=== PATIENT | female | born 1930 | race Caucasian/White ===

== ENCOUNTER 2017-01-27 20:11 | Inpatient (IN) | payer MEDICARE ==
[~2017-01-27] VITALS: Ht 154.9 cm; Wt 57.4 kg
--- NOTE | 2017-01-27 20:47 | PHYS DOC ---
Adult General Chief Complaint Chief Complaint: WEAKNESS/GENERALIZED HPI HPI Patient is a 86 year old female who presents with the acute onset of generalized weakness. Daughter states they've been out all day and after eating at [employer] came home and she was extremely weak therefore daughter brought her to the ER for further examination. Daughter states she has no history of A. fib however the patient is in A. fib with RVR on the monitor in the emergency room. Patient has no cardiac history. Pertinent exam findings Heart tachycardia irregular irregular ED course: CBC, CMP, trop, EKG, CXR, 20 mg of Cardizem IV push 2134: Discussed results the patient the plan to admit for the new onset of A. fib and discussed the need to place the patient on blood thinners 2141: Discussed CC/HPI/PMH with Dr. Garcia who agrees to admit the patient and want to start the patient with heparin drip 2152: Cardizem drip started Pertinent findings: 2041: EKG Afib 145 RVR no STEMI 2112: 20 mg of Cardizem given 2141: Elevated troponin of 0.237 ED medical decision making: After reviewing the chart, CC/HPI/PMH, PE, Labs, CRX I do not bleed the patient is having acute IL despite the elevated troponin I believe the patient's troponin is elevated secondary to the patient's new onset of A. fib with RVR. We 'll but the patient to the CVC for new onset A. fib with RVR, Cardizem and heparin drip. Review of Systems Review of Systems Constitutional: gen weakness Eyes: Denies change in visual acuity, redness, or eye pain [] HENT: Denies nasal congestion or sore throat [] Respiratory: Denies cough or shortness of breath [] Cardiovascular: No additional information not addressed in HPI [] GI: Denies abdominal pain, nausea, vomiting, bloody stools or diarrhea [] : Denies dysuria or hematuria [] Musculoskeletal: Denies back pain or joint pain [] Integument: Denies rash or skin lesions [] Current Medications Current Medications Current Medications Medications (Trade) Dose Ordered Sig/Maritza Start Time Stop Time Status Last Admin Dose Admin Aspirin (Children'S Aspirin) 324 mg 1X ONCE 01/27/17 22:00 01/27/17 22:01 Diltiazem HCl (Cardizem) 20 mg 1X ONCE 01/27/17 21:00 01/27/17 21:01 DC 01/27/17 21:08 20 MG Diltiazem HCl 125 mg/Dextrose 125 ml @ 0 mls/hr CONT PRN 01/27/17 21:15 01/28/17 21:14 01/27/17 21:51 5 MLS/HR Heparin Sodium (Porcine) (Heparin Sodium) 1,600 unit PRN Q6HRS PRN 01/27/17 22:00 UNV Heparin Sodium/ Dextrose 500 ml @ 0 mls/hr CONT PRN 01/27/17 22:00 UNV Morphine Sulfate 4 mg PRN Q2HR PRN 01/27/17 21:45 01/28/17 21:44 UNV Nitroglycerin (Nitrostat) 0.4 mg PRN Q5MIN PRN 01/27/17 21:45 01/28/17 21:44 UNV Ondansetron HCl (Zofran) 4 mg PRN Q8HRS PRN 01/27/17 21:45 01/28/17 21:44 UNV Allergies Allergies Allergies Coded Allergies Type Severity Reaction Last Updated Verified No Known Drug Allergies 01/27/17 No Physical Exam Physical Exam Constitutional: alter HENT: Normocephalic, atraumatic, bilateral external ears normal, oropharynx moist, no oral exudates, nose normal. [] Eyes: PERRLA, EOMI, conjunctiva normal, no discharge. [] Neck: Normal range of motion, no tenderness, supple, no stridor. [] Cardiovascular: Tachycardia irregular irregular no murmurs Lungs & Thorax: Bilateral breath sounds clear to auscultation [] Abdomen: Bowel sounds normal, soft, no tenderness, no masses, no pulsatile masses. [] Skin: Warm, dry, no erythema, no rash. [] Back: No tenderness, no CVA tenderness. [] Extremities: No tenderness, no cyanosis, no clubbing, ROM intact, no edema. [] Neurologic: Alert and oriented X 3, normal motor function, normal sensory function, no focal deficits noted. [] Psychologic: Affect normal, judgement normal, mood normal. [] Current Patient Data Vital Signs Vital Signs Date Time Temp Pulse Resp B/P (MAP) Pulse Ox O2 Delivery O2 Flow Rate FiO2 01/27/17 21:08 160 119/56 Lab Values Laboratory Tests Test 01/27/17 21:00 White Blood Count 8.1 x10^3/uL (4.0-11.0) Red Blood Count 4.26 x10^6/uL (3.50-5.40) Hemoglobin 14.1 g/dL (12.0-15.5) Hematocrit 41.0 % (36.0-47.0) Mean Corpuscular Volume 96 fL (79-100) Mean Corpuscular Hemoglobin 33 pg (25-35) Mean Corpuscular Hemoglobin Concent 34 g/dL (31-37) Red Cell Distribution Width 13.7 % (11.5-14.5) Platelet Count 216 x10^3/uL (140-400) Neutrophils (%) (Auto) 73 % (31-73) Lymphocytes (%) (Auto) 18 % (24-48) L Monocytes (%) (Auto) 8 % (0-9) Eosinophils (%) (Auto) 1 % (0-3) Basophils (%) (Auto) 1 % (0-3) Neutrophils # (Auto) 5.9 x10^3uL (1.8-7.7) Lymphocytes # (Auto) 1.5 x10^3/uL (1.0-4.8) Monocytes # (Auto) 0.7 x10^3/uL (0.0-1.1) Eosinophils # (Auto) 0.0 x10^3/uL (0.0-0.7) Basophils # (Auto) 0.0 x10^3/uL (0.0-0.2) Sodium Level 140 mmol/L (136-145) Potassium Level 3.7 mmol/L (3.5-5.1) Chloride Level 101 mmol/L (98-107) Carbon Dioxide Level 29 mmol/L (21-32) Anion Gap 10 (6-14) Blood Urea Nitrogen 27 mg/dL (7-20) H Creatinine 1.6 mg/dL (0.6-1.0) H Estimated GFR (Cockcroft-Gault) 30.6 BUN/Creatinine Ratio 17 (6-20) Glucose Level 147 mg/dL (70-99) H Calcium Level 9.3 mg/dL (8.5-10.1) Total Bilirubin 0.6 mg/dL (0.2-1.0) Aspartate Amino Transferase (AST) 26 U/L (15-37) Alanine Aminotransferase (ALT) 21 U/L (14-59) Alkaline Phosphatase 71 U/L (46-116) Troponin I Quantitative 0.237 ng/mL (0.000-0.055) Total Protein 7.6 g/dL (6.4-8.2) Albumin 3.6 g/dL (3.4-5.0) Albumin/Globulin Ratio 0.9 (1.0-1.7) L Laboratory Tests 01/27/17 21:00 Laboratory Tests 01/27/17 21:00 EKG EKG EKG A. fib rate of 145 RVRtime no STEMI[] Radiology/Procedures Radiology/Procedures One view portable chest x-ray and NAD[] Course & Med Decision Making Course & Med Decision Making Pertinent Labs and Imaging studies reviewed. (See chart for details) [] Dragon Disclaimer Dragon Disclaimer This electronic medical record was generated, in whole or in part, using a voice recognition dictation system. Departure Departure Impression: Primary Impression: Atrial fibrillation with RVR Additional Impression: Elevated troponin Disposition: ADMITTED INPATIENT Admitting Physician: Other (Dr. Garcia) Referrals: SUSANNE REDDING MD (PCP) Problem Qualifiers LEIGH BROOKS DO January 27, 2017 20:47
[2017-01-27] MEDS ORDERED: dilTIAZem IV PUSH 25 MG/5 ML VIAL IVP ONE (21:00)
[2017-01-27 21:09] LABS: BASO % 1 % (0-3); EOS % 1 % (0-3); HEMOGLOBIN 14.1 g/dL (12.0-15.5); LYMPH # 1.5 x10^3/uL (1.0-4.8); LYMPH % 18 % (24-48); MEAN CORPUSCULAR HEMOGLOBIN 33 pg (25-35); MEAN CORPUSCULAR HGB CONC 34 g/dL (31-37); MEAN CORPUSCULAR VOLUME 96 fL (79-100); MONO % 8 % (0-9); NEUT % 73 % (31-73); PLATELET COUNT 216 x10^3/uL (140-400); RED BLOOD COUNT 4.26 x10^6/uL (3.50-5.40); RED CELL DISTRIBUTION WIDTH 13.7 % (11.5-14.5); WHITE BLOOD COUNT 8.1 x10^3/uL (4.0-11.0)
[2017-01-27 21:20] LABS: CALCIUM 9.3 mg/dL (8.5-10.1); CREATININE 1.6 mg/dL (0.6-1.0); GFR 30.6; POTASSIUM 3.7 mmol/L (3.5-5.1)
[2017-01-27 21:34] LABS: ALBUMIN 3.6 g/dL (3.4-5.0); ALBUMIN/GLOBULIN RATIO 0.9 (1.0-1.7); TOTAL BILIRUBIN 0.6 mg/dL (0.2-1.0); TOTAL PROTEIN 7.6 g/dL (6.4-8.2)
[2017-01-27] MEDS ORDERED: MORPHINE SULFATE 4 MG/ML DISP.SYRIN. IV PRN (21:45)
[2017-01-27] MEDS ORDERED: NITROGLYCERIN SUBLINGUAL 0.4 MG BOTTLE OF 25. SL PRN (21:45)
[2017-01-27] MEDS ORDERED: ONDANSETRON PF 4 MG/2 ML VIAL. IV PRN (21:45)
[2017-01-27] MEDS ORDERED: HEPARIN for IV BOLUS 10,000 UNIT/10 ML VIAL. IV PRN (22:00)
[2017-01-27] MEDS ORDERED: ASPIRIN CHEWABLE 81 MG TABLET. PO ONE (22:00)
[2017-01-27] MEDS ORDERED: HEPARIN 25,000UTS/500ML PREMIX 500 ML IV PRN (22:00)
[2017-01-27 23:00] VITALS: BP 137/76
[2017-01-28] VITALS (7 sets, daily range): BP systolic 103–137; BP diastolic 48–76
--- NOTE | 2017-01-28 00:31 | HP ---
ADMIT DATE: 01/28/2017 CHIEF COMPLAINT: Generalized weakness. HISTORY OF PRESENT ILLNESS: The patient is an 86-year-old woman, who presented from home with acute onset generalized weakness. The patient herself is actually unclear why she is in the hospital, she cannot remember any of the details, but she refers to her daughter, who apparently brought her to the hospital. Daughter had noted that after being out with her mother all day long eating a [employer] and coming home. The patient was extremely fatigued, weak. The patient actually is not sure if she was lying on the ground or not. Daughter brought her to the Emergency Room for further workup. Here she was found with atrial fibrillation in RVR. There is no personal or family history of AFib. PAST MEDICAL HISTORY: Unknown, the patient does not recollect illnesses. FAMILY HISTORY: Unknown, but apparently no AFib, according to records from daughter. SOCIAL HISTORY: Lives by herself. No toxic habits. ALLERGIES: No known drug allergies. MEDICATIONS: Pending. REVIEW OF SYSTEMS: The patient feels somewhat weak, but otherwise is in no acute distress. She particularly denies shortness of breath, palpitations or chest pain. Rest of organ system review is negative. PHYSICAL EXAMINATION: VITAL SIGNS: From today show a blood pressure of 117/75, heart rate of 110, respiratory rate at 18. She is afebrile. GENERAL: This is a well-nourished, well-developed, 86-year-old, woman, awake, alert, in no acute distress. HEENT: Shows no scleral icterus. NECK: Supple. LUNGS: Clear bilaterally. HEART: Tachycardic, irregular. ABDOMEN: Has positive bowel sounds, soft, nontender. EXTREMITIES: Show no edema. LABORATORY DATA: CBC with a WBC of 8.1, hemoglobin 14.1, platelets of 216. BUN and creatinine of 27 and 1.6. Normal electrolytes, baseline is unknown. LFTs within normal limits. Initial troponin of 0.237 and albumin at 3.6. IMAGING: Chest x-ray obtained in the Emergency Room and reviewed by myself shows no acute cardiopulmonary abnormalities. ASSESSMENT AND PLAN: The patient is an 86-year-old woman with new atrial filtration rapid ventricular response and slight troponin leak. She is being monitored in the CVC. She has been started on Cardizem drip as well as heparin drip for the time being. Cardiac consult will be obtained in the morning for consideration of cardioversion. However, we will have to rule out acute coronary syndrome first. Serial enzymes are be obtained. We will obtain home medications tomorrow from daughter. By labs otherwise available and no abnormalities are apparent. DIMAS JAMISON MD DR: VELMA/salvador JOB#: [id number] / [id number] YESSY
[2017-01-28] MEDS ORDERED: METO25TA9 PO (00:38)
[2017-01-28] MEDS ORDERED: OMEP20CA9 PO (00:38)
[2017-01-28] MEDS ORDERED: LISI-334 PO (00:38)
[2017-01-28 03:50] LABS: BASO % 0 % (0-3); EOS % 0 % (0-3); HEMATOCRIT 38.7 % (36.0-47.0); HEMOGLOBIN 13.1 g/dL (12.0-15.5); LYMPH # 1.7 x10^3/uL (1.0-4.8); LYMPH % 24 % (24-48); MEAN CORPUSCULAR HEMOGLOBIN 33 pg (25-35); MEAN CORPUSCULAR HGB CONC 34 g/dL (31-37); MEAN CORPUSCULAR VOLUME 97 fL (79-100); MONO % 9 % (0-9); NEUT % 67 % (31-73); PLATELET COUNT 208 x10^3/uL (140-400); RED CELL DISTRIBUTION WIDTH 13.7 % (11.5-14.5)
[2017-01-28 04:00] LABS: CALCIUM 8.6 mg/dL (8.5-10.1); CREATININE 1.2 mg/dL (0.6-1.0); GFR 42.6
[2017-01-28] MEDS ORDERED: HEPARIN 25,000UTS/500ML PREMIX 500 ML IV PRN (04:15)
[2017-01-28] MEDS ORDERED: HEPARIN for IV BOLUS 10,000 UNIT/10 ML VIAL. IV PRN (04:15)
--- NOTE | 2017-01-28 08:17 | RAD ---
EXAM: CHEST 1 VIEW History: New onset atrial fibrillation Comparison: 10/04/2003 TECHNIQUE: Single portable radiograph of the chest FINDINGS: The cardiac silhouette is unremarkable. The lungs are clear bilaterally. The costophrenic sulci are clear and well demarcated. IMPRESSION: No radiographic evidence of an acute cardiopulmonary process.
--- NOTE | 2017-01-28 08:35 | PDOC2 ---
CARDIOLOGY CONSULT NOTE CHEIF COMPLAINT: Weakness Problems: HPI: 86 y.o woman who is independent brought in by her daughter for weakness yesterday evening. No preceding symptoms. Usually able to do ADL's without problems. Denies any recent chest pain, dyspnea, orthopnea, pnd or lower ext edema. Compliant with home meds as noted below Denies any syncope. Found to be in afib with RVR in ER. Given diltiazem and hep gtt. Now converted to SR. Hep gtt continued. Diltiazem stopped Trop has increased from less than 1 to 5.3. Cardiology asked to evaluate. PMHX: HTN Mild dementia SOCHX: No alcohol, tobacco or illicit drug use. FAMHX: NC CURRENT MEDS: Hep gtt Home meds: Lisinopril and metoprolol. ALLERGIES: Allergies Coded Allergies Type Severity Reaction Last Updated Verified No Known Drug Allergies 01/27/17 No ROS: Negative for 06/30 systems reviewed unless otherwise noted above in HPI. PHYSICAL EXAM: Vital Signs: Vital Signs Date Time Temp Pulse Resp B/P (MAP) Pulse Ox O2 Delivery O2 Flow Rate FiO2 01/28/17 03:45 97.4 60 20 103/55 (71) 95 Room Air 97.4 Physical Exam: Gen: A/O x3. NAD CVS: RRR, no m/r/g PULM: CTAB ABD: Soft, NT/ND +BS EXT: No edema. venous varicosities. 2+ radial pulses NEURO: Non-focal exam. PSYCH: Normal mood/affect MSK: No trauma. DIAGNOSTIC TESTING: Trop 5.3. Cr. 1.6 to 1.2 Hgb 13. ASSESSMENT: 1. Transient afib with RVR, now resolved 2. NSTEMI PLAN: 1. Plan for cardiac cath tomorrow, discussed r/b/a with patient and family 2. Continue heparin gtt 3. Add aspirin. Continue home metoprolol. Hold lisinopril. Will add statin 4. Routine echo ordered. Thanks for consult. Will f/u. KEVIN ESTRADA MD January 28, 2017 08:35
[2017-01-28 08:54] LABS: CHOLESTEROL/HDL RATIO 3.6
[2017-01-28] MEDS ORDERED: CLOPIDOGREL BISULFATE 75 MG TABLET PO ONE (11:30)
[2017-01-28] MEDS: METOPROLOL SUCC 24HR ER 25 MG TAB.ER.24H. PO SCH (12:17)
--- NOTE | 2017-01-28 12:54 | EKG ---
[facility] [address] [place] [address] Test Date: 2017-01-27 Test Time: 20:33:04 Pat Name: LEEROY ISAACS Department: Room: 258 1 Gender: Female [employer] Electrician: : 1930 Requested By: LEIGH BROOKS Order Number: [id number] Reading MD: Hemanth Martinez Measurements Intervals [place] Rate: 145 P: FL: QRS: 44 QRSD: 84 T: 36 QT: 280 QTc: 438 Interpretive Statements ATRIAL FIB./FLUTTER WITH RAPID VENTRICULAR RESPONSE VENTRICULAR PREMATURE COMPLEX(ES) Electronically Signed On 01-30-2017 9:52:27 CDT by Hemnath Martinez
--- NOTE | 2017-01-28 14:38 | PDOC ---
PROGRESS NOTES Chief Complaint Chief Complaint Atrial fib w/ RVR ASSESSMENT AND PLAN: 1. aFib: reverted to NSC, gardizem gtt stopped, on PO metoprolol. 2. NSTEMI: appreciate Dr Martinez's input! plan for cath in AM; cont heparin gtt 3. HLD: on statin History of Present Illness History of Present Illness no CP or SOB. no abd c/o Vitals Vitals Vital Signs Date Time Temp Pulse Resp B/P (MAP) Pulse Ox O2 Delivery O2 Flow Rate FiO2 01/28/17 12:17 74 01/28/17 11:00 98.6 18 128/65 (86) 93 Room Air 98.6 Physical Exam General: Alert, Cooperative, No acute distress Heart: Regular rate Lungs: Clear Abdomen: Normal bowel sounds, Soft, No tenderness Extremities: No edema Skin: No rashes Labs LABS Laboratory Tests Test 01/27/17 21:00 01/27/17 23:30 01/28/17 03:40 01/28/17 09:45 White Blood Count 8.1 x10^3/uL (4.0-11.0) 7.0 x10^3/uL (4.0-11.0) Red Blood Count 4.26 x10^6/uL (3.50-5.40) 4.00 x10^6/uL (3.50-5.40) Hemoglobin 14.1 g/dL (12.0-15.5) 13.1 g/dL (12.0-15.5) Hematocrit 41.0 % (36.0-47.0) 38.7 % (36.0-47.0) Mean Corpuscular Volume 96 fL (79-100) 97 fL (79-100) Mean Corpuscular Hemoglobin 33 pg (25-35) 33 pg (25-35) Mean Corpuscular Hemoglobin Concent 34 g/dL (31-37) 34 g/dL (31-37) Red Cell Distribution Width 13.7 % (11.5-14.5) 13.7 % (11.5-14.5) Platelet Count 216 x10^3/uL (140-400) 208 x10^3/uL (140-400) Neutrophils (%) (Auto) 73 % (31-73) 67 % (31-73) Lymphocytes (%) (Auto) 18 % (24-48) 24 % (24-48) Monocytes (%) (Auto) 8 % (0-9) 9 % (0-9) Eosinophils (%) (Auto) 1 % (0-3) 0 % (0-3) Basophils (%) (Auto) 1 % (0-3) 0 % (0-3) Neutrophils # (Auto) 5.9 x10^3uL (1.8-7.7) 4.7 x10^3uL (1.8-7.7) Lymphocytes # (Auto) 1.5 x10^3/uL (1.0-4.8) 1.7 x10^3/uL (1.0-4.8) Monocytes # (Auto) 0.7 x10^3/uL (0.0-1.1) 0.6 x10^3/uL (0.0-1.1) Eosinophils # (Auto) 0.0 x10^3/uL (0.0-0.7) 0.0 x10^3/uL (0.0-0.7) Basophils # (Auto) 0.0 x10^3/uL (0.0-0.2) 0.0 x10^3/uL (0.0-0.2) Sodium Level 140 mmol/L (136-145) 139 mmol/L (136-145) Potassium Level 3.7 mmol/L (3.5-5.1) 4.0 mmol/L (3.5-5.1) Chloride Level 101 mmol/L (98-107) 102 mmol/L (98-107) Carbon Dioxide Level 29 mmol/L (21-32) 27 mmol/L (21-32) Anion Gap 10 (6-14) 10 (6-14) Blood Urea Nitrogen 27 mg/dL (7-20) 24 mg/dL (7-20) Creatinine 1.6 mg/dL (0.6-1.0) 1.2 mg/dL (0.6-1.0) Estimated GFR (Cockcroft-Gault) 30.6 42.6 BUN/Creatinine Ratio 17 (6-20) Glucose Level 147 mg/dL (70-99) 156 mg/dL (70-99) Calcium Level 9.3 mg/dL (8.5-10.1) 8.6 mg/dL (8.5-10.1) Total Bilirubin 0.6 mg/dL (0.2-1.0) Aspartate Amino Transf (AST/SGOT) 26 U/L (15-37) Alanine Aminotransferase (ALT/SGPT) 21 U/L (14-59) Alkaline Phosphatase 71 U/L (46-116) Troponin I Quantitative 0.237 ng/mL (0.000-0.055) 5.730 ng/mL (0.000-0.055) 6.612 ng/mL (0.000-0.055) Total Protein 7.6 g/dL (6.4-8.2) Albumin 3.6 g/dL (3.4-5.0) Albumin/Globulin Ratio 0.9 (1.0-1.7) Nasal Screen MRSA (PCR) Negative (Negative) Triglycerides Level 69 mg/dL (0-150) Cholesterol Level 238 mg/dL (0-200) LDL Cholesterol, Calculated 157 mg/dL (0-100) VLDL Cholesterol, Calculated 14 mg/dL (0-40) Non-HDL Cholesterol Calculated 171 mg/dL (0-129) HDL Cholesterol 67 mg/dL (40-60) Cholesterol/HDL Ratio 3.6 Heparin Anti-Xa Act, Unfractionated 0.76 IU/mL (0.30-0.70) DIMAS JAMISON MD January 28, 2017 14:38
[2017-01-28] MEDS: ATORVASTATIN CALCIUM 40 MG TABLET. PO SCH (21:11)
[2017-01-29] VITALS (11 sets, daily range): BP systolic 126–177; BP diastolic 61–95
[2017-01-29 06:24] LABS: HEMATOCRIT 35.9 % (36.0-47.0); HEMOGLOBIN 12.7 g/dL (12.0-15.5); RED BLOOD COUNT 3.76 x10^6/uL (3.50-5.40); RED CELL DISTRIBUTION WIDTH 13.5 % (11.5-14.5)
[2017-01-29] MEDS: METOPROLOL SUCC 24HR ER 25 MG TAB.ER.24H. PO SCH (09:06)
[2017-01-29] MEDS: ASPIRIN ENTERIC COATED 81 MG TABLET.DR. PO SCH (09:06)
[2017-01-29] MEDS ORDERED: LIDOCAINE 2% 20 ML VIAL. ONE (10:38)
[2017-01-29] MEDS ORDERED: IOHEXOL 300 MG/ML 100ML VIAL. ONE (10:39)
[2017-01-29] MEDS ORDERED: MIDAZOLAM HCL/PF 2 MG/2 ML VIAL. ONE (10:49)
[2017-01-29] MEDS ORDERED: NITROGLYCERIN 200 MCG/2 ML SYRINGE FOR CATH/VASC LAB. ONE (10:49)
[2017-01-29] MEDS ORDERED: fentaNYL PF VIAL 100 MCG/2 ML VIAL ONE (10:49)
[2017-01-29] MEDS ORDERED: VERAPAMIL 5 MG/2 ML VIAL. ONE (10:49)
[2017-01-29] MEDS ORDERED: HEPARIN for IV BOLUS 10,000 UNIT/10 ML VIAL. ONE (10:50)
--- NOTE | 2017-01-29 11:02 | CARD ---
APPROVED REPORT EXAM: Two-dimensional and M-mode echocardiogram with Doppler and color Doppler. Other Information Quality : GoodHR: 64bpm Rhythm : NSR INDICATION Non STEMI 2D DIMENSIONS RVDd3.0 (2.9-3.5cm)Left Atrium(2D)4.2 (1.6-4.0cm) IVSd0.9 (0.7-1.1cm)Aortic Root(2D)2.9 (2.0-3.7cm) LVDd4.3 (3.9-5.9cm)LVOT Diameter2.3 (1.8-2.4cm) PWd1.0 (0.7-1.1cm)LVDs3.0 (2.5-4.0cm) FS (%) 30.8 %SV48.8 ml LVEF(%)58.7 (>50%) Aortic Valve AoV Peak Marcos.141.1cm/sAoV VTI32.8cm AO Peak GR.8.0mmHgLVOT Peak Marcos.77.7cm/s AO Mean GR.4mmHgAVA (VMAX)2.21cm2 Mitral Valve MV E Xeugtore294.4cm/sMV DECEL [id number] MV A Gisqscuu83.8cm/sE/A Ratio2.6 MV A Daqdgate86fx Pulmonary Valve PV Peak Fstdetyz85.7cm/s Tricuspid Valve TR P. Kdhnugqx557tj/sTR Peak Gr.33mmHg Pulmonary Vein S1 Bweyxbrj77.9cm/sD2 Anzkrivs38.2cm/s PVa [id number] LEFT VENTRICLE The left ventricle is normal size. There is normal left ventricular wall thickness. The left ventricu lar systolic function is normal and the ejection fraction is within normal range. The Ejection Fracti on is 55-60%. There is subtle anterior and inferior wall hypokinesis. Otherwise, global wall motion i s grossly normal. Transmitral Doppler flow pattern is Grade II-pseudonormal filling dynamics. RIGHT VENTRICLE The right ventricle is normal size. There is normal right ventricular wall thickness. The right ventr icular systolic function is normal. ATRIA The left atrium size is normal. The right atrium size is normal. The interatrial septum is intact wit h no evidence for an atrial septal defect or patent foramen ovale as noted on 2-D or Doppler imaging. AORTIC VALVE The aortic valve is moderately sclerotic. The aortic valve is trileaflet. Doppler and Color Flow reve aled no significant aortic regurgitation. There is no significant aortic valvular stenosis. MITRAL VALVE Mitral annular calcification is mild. The mitral valve leaflets are thickened. There is no evidence o f mitral valve prolapse. There is no mitral valve stenosis. Doppler and Color Flow revealed mild mitr al regurgitation. TRICUSPID VALVE Doppler and Color Flow revealed mild tricuspid regurgitation. The pulmonary artery systolic pressure is estimated at 44 mmHg. There is mild pulmonary hypertension. PULMONIC VALVE Doppler and Color Flow revealed mild pulmonic valvular regurgitation. There is no pulmonic valvular s tenosis. GREAT VESSELS The aortic root is normal in size. The ascending aorta is normal in size. The pulmonary artery is nor mal. The IVC is normal in size and collapses >50% with inspiration. PERICARDIAL EFFUSION There is no evidence of significant pericardial effusion. Critical Notification Critical Value: No <Conclusion> The left ventricular systolic function is normal and the ejection fraction is within normal range. Th e Ejection Fraction is 55-60%. There is subtle anterior and inferior wall hypokinesis. Otherwise, global wall motion is grossly norm al. Doppler and Color Flow revealed mild tricuspid regurgitation. The pulmonary artery systolic pressure is estimated at 44 mmHg. There is mild pulmonary hypertension.
[2017-01-29] MEDS ORDERED: HEPARIN for IV BOLUS 10,000 UNIT/10 ML VIAL. IART ONE (11:15)
[2017-01-29] MEDS ORDERED: MIDAZOLAM HCL/PF 2 MG/2 ML VIAL. IV ONE (11:15)
[2017-01-29] MEDS ORDERED: IOHEXOL 300 MG/ML 100ML VIAL. IART ONE (11:15)
[2017-01-29] MEDS ORDERED: NITROGLYCERIN 200 MCG/2 ML SYRINGE FOR CATH/VASC LAB. IART ONE (11:15)
[2017-01-29] MEDS ORDERED: fentaNYL PF VIAL 100 MCG/2 ML VIAL IV ONE (11:15)
[2017-01-29] MEDS ORDERED: LIDOCAINE 2% 20 ML VIAL. IJ ONE (11:15)
[2017-01-29] MEDS ORDERED: VERAPAMIL 5 MG/2 ML VIAL. IART ONE (11:15)
[2017-01-29] MEDS ORDERED: BIVALIRUDIN 250 MG VIAL. IV ONE ×2 (11:20→11:30)
[2017-01-29] MEDS ORDERED: ATROPINE 0.5 MG/5 ML DISP.SYRIN. ONE (11:25)
[2017-01-29] MEDS ORDERED: CLOPIDOGREL BISULFATE 75 MG TABLET ONE (12:26)
[2017-01-29] MEDS ORDERED: CLOPIDOGREL BISULFATE 75 MG TABLET PO ONE (12:30)
--- NOTE | 2017-01-29 13:03 | CARD ---
APPROVED REPORT Procedure(s) performed: Left heart catheterization Coronary angiography PTCA of the RCA, LAD and LCx Stenting of the RCA, LAD, LCx HISTORY The patient is a 86 year-old female with a history of : hypertension, dyslipidemia. INDICATION The indication(s) include : non-STEMI (>72 hrs to = 7 days). PROCEDURE NARRATIVE The patient was brought electively to the cardiac catheterization lab. A timeout was performed confi rming the patient's name, date of , procedure, and site of procedure. All necessary personnel w ere wearing the appropriate protective equipment and radiation monitor devices. After explaining the risks and benefits of the procedure and alternatives, informed consent was obtained. (See nursing no estefany for medications administered). The right wrist was sterilely prepped and draped in the usual fas hion. The right wrist was infiltrated with 1 mL of 2% lidocaine for subcutaneous anesthesia. A 6 Fr ench Terumo glide sheath was inserted into the right radial artery without difficulty. Right and lef t coronary angiography was performed using a 6Fr TIG 4.0 catheter. HEMODYNAMICS: LVEDP 20 mm Hg No gradient on LV to aortic pullback. LEFT VENTRICULOGRAM: Deferred due to renal insufficiency and need for 3V PCI. CORONARY ANGIOGRAPHY: LM is a large caliber vessel with normal angiographic appearance. LAD is a large caliber vessel a proximal 50% stenosis, mid 80% stenosis with ectasia and diffuse nega tive remodeling and 40% stenosis in the mid and distal vessel. D1 is a small caliber vessel with normal angiographic appearance. LCx is a moderate caliber non-dominant vessel with a mid 80% stenosis. OM1 is a moderate caliber vessel with normal angiographic appearance. RCA is a moderate sized vessel with a mid 90% stenosis, with REAL 1 flow in the distal vessel. There is diffuse negative remodeling again in this vessel with moderate disease of up to 50% throughout. RPDA and RPL are small caliber vessels with normal angiographic appearance. INTERVENTIONAL TECHNIQUE: PCI of the RCA Based upon the patient's age, comorbidities (frailty, CKD and moderate dementia) she was felt to be h igh risk for CABG and therefore multivessel PCI was pursued. Bivalirudin was used for anticoagualtion . The patient was loaded with Plavix 600mg. A JR4 guide was used to engage the RCA. A prowater wire w as used to cross the lesion. Balloon angioplasty was performed with a Trek 2.5/12 mm balloon and the lesion was stented with a Xience 2.5/23 RONDA at 16 alejandra. Final post-PCI angiography demonstrated excell ent stent expansion with REAL 3 flow in the distal vessel. No acute complications noted. INTERVENTIONAL TECHNIQUE: PCI OF THE LAD Attention was then turned to the LAD. Bivalirudin was continued. Through an EBU 3.5 guide catheter, a 0.014'' Prowater wire was used to cross the lesion. The proximal to mid LAD lesion was then angiopla stied with a Trek 2.5/12 mm balloon. The lesion was then stented with a 3.5/12 RONDA. Post-stent placem ent, the proximal lesion appeared to be more critical and therefore, an overlapping Xience 3.5/12 RONDA was placed at high pressure and the overlap segment was post-dilated using the stent balloon. Due to vessel ectasia and negative remodeling, stent sizing was difficult. The distal stent edge appeared t o show a possible dissection and upon repeat views after wire removal there was no evidence of dissec tion and given REAL 3 flow in the vessel without ST/T changes, further intervention was deferred give n the diffuse nature of disease. INTERVENTIONAL TECHNIQUE: PCI OF THE LCx Finally, the Prowater wire was directed to the distal OM1. The LCx lesion was angioplasited with a 3. 0/8 Trek balloon and then stented with a Xience 3.5/12 RONDA at high pressure. Final post-PCI angiograp hy revealed excellent stent expansion. The patient received Plavix 300mg at case completion. All cath eter exchanges and advancements were performed over a guidewire. At case completion the right radial sheath was removed and a Terumo radial band was applied with 13 ml of air. The patient tolerated th e procedure well and there were no immediate complications. Conclusion 1. 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 2. Successful PCI of the RCA with implantation of a Xience 2.5/23 RONDA. 3. Successful PCI of the LAD with implantation of two Xience 3.5/12 (overlapping stents). 4. Successful PCI of the LCx with implantation of a Xience 3.01/26 RONDA. Recommendations ASA 81mg daily Plavix 75mg daily Cardiac rehab referral if tolerated High dose statin therapy.
--- NOTE | 2017-01-29 18:40 | PDOC ---
PROGRESS NOTES Chief Complaint Chief Complaint Atrial fib w/ RVR ASSESSMENT AND PLAN: 1. aFib: reverted to NSC, gardizem gtt stopped, on PO metoprolol. 2. NSTEMI: cath today with mult stents. post cath protocol. 3. HLD: on statin 4. Dispo: anticipate D/C in Am to rehab History of Present Illness History of Present Illness no CP or SOB. Vitals Vitals Vital Signs Date Time Temp Pulse Resp B/P (MAP) Pulse Ox O2 Delivery O2 Flow Rate FiO2 01/29/17 14:20 Room Air 01/29/17 14:15 60 18 144/77 (99) 95 01/29/17 12:23 2.0 01/29/17 07:00 98.1 98.1 Physical Exam General: Alert, Cooperative, No acute distress Heart: Regular rate Lungs: Clear Abdomen: Normal bowel sounds, Soft, No tenderness Extremities: No edema Skin: No rashes Labs LABS Laboratory Tests Test 01/28/17 23:00 01/29/17 06:00 Heparin Anti-Xa Act, Unfractionated 0.45 IU/mL (0.30-0.70) 0.39 IU/mL (0.30-0.70) White Blood Count 6.0 x10^3/uL (4.0-11.0) Red Blood Count 3.76 x10^6/uL (3.50-5.40) Hemoglobin 12.7 g/dL (12.0-15.5) Hematocrit 35.9 % (36.0-47.0) Mean Corpuscular Volume 95 fL (79-100) Mean Corpuscular Hemoglobin 34 pg (25-35) Mean Corpuscular Hemoglobin Concent 35 g/dL (31-37) Red Cell Distribution Width 13.5 % (11.5-14.5) Platelet Count 185 x10^3/uL (140-400) DIMAS JAMISON MD January 29, 2017 18:40
[2017-01-29] MEDS: ATORVASTATIN CALCIUM 40 MG TABLET. PO SCH (21:06)
[2017-01-30] VITALS (9 sets, daily range): BP systolic 120–180; BP diastolic 55–86
[2017-01-30] MEDS: ACETAMINOPHEN 325 MG TABLET. PO PRN ×2 (03:19→22:07)
[2017-01-30] MEDS ORDERED: ANTI-COAG MONITOR BY PHARMACY. MC PRN (07:45)
[2017-01-30] MEDS: METOPROLOL SUCC 24HR ER 25 MG TAB.ER.24H. PO SCH (08:32)
[2017-01-30] MEDS: ASPIRIN ENTERIC COATED 81 MG TABLET.DR. PO SCH (08:32)
--- NOTE | 2017-01-30 12:40 | PDOC ---
LAMAR JOSEPH ANIMAL NURSE 01/30/17 1240: CARDIO Progress Notes Date and Time Date of Service 01/30/2017 Time of Evaluation 1200 Subjective Subjective: No Chest Pain, No shortness of breath, No Palpitations, No Dizziness Vitals Vitals Vital Signs Date Time Temp Pulse Resp B/P (MAP) Pulse Ox O2 Delivery O2 Flow Rate FiO2 01/30/17 11:02 98.2 60 20 128/55 (79) 96 Room Air 98.2 01/29/17 12:23 2.0 Weight Weight [ ] Input and Output Intake and Output Intake and Output 01/30/17 07:00 Intake Total 460 ml Output Total 670 ml Balance -210 ml Intake Oral 460 ml Output Urine Total 670 ml # Voids 4 Physical Exam HEENT: Neck Supple W Full Motion Chest: Symmetric LUNGS: Clear to Auscultation Heart: S1S2, RRR (SR) Abdomen: Soft N/T Extremities: No Edema, No Calf Tenderness Neurology: alert, oriented, follow commands Other Exams Right wrist arteriotomy site intact without erythema/swelling, neurovascular status intact Assessment Assessment 1. NSTEMI: noted with . S/P PCI/RONDA to LAD/RCA/LCx 2. AFIB RVR: New. High predisposition given her age and likely induced by ischemia. Currently SB 50s 3. Suspect CKD 4. HLP 5. HTN: big fluctuation on BP. Recommendations 1. Continue with metoprolol, will add ACEi. 2. DAPT ASA and plavix 3. Lipitor 4. If pt does go home, will arrange for event monitor to note afib burden. 5. Continue on ASA for stroke prevention, advanced age, high risk for falls. Discussed significantly regarding risks and benefits of OAC/NOAC and would prefer at this time to use ASA 6. Cardiac rehab 7. BMP today 8. Check for orthostasis 9. PT/OT pending, follow up in office in 4 weeks. KEVIN ESTRADA MD 01/30/17 1455: CARDIO Progress Notes Plan Plan Pt. seen and examined. Agree with above TRAVEL GUIDE note. No acute events overnight. No chest pain. Labs reviewed. No edema. Cr stable. f/u in 4 weeks in the office. consider outpt holter. LAMAR JOSEPH APRN January 30, 2017 12:40 KEVIN ESTRADA MD January 30, 2017 14:55
[2017-01-30 13:07] LABS: CALCIUM 8.4 mg/dL (8.5-10.1); CREATININE 1.1 mg/dL (0.6-1.0); GFR 47.1; POTASSIUM 3.6 mmol/L (3.5-5.1)
[2017-01-30] MEDS: LISINOPRIL 2.5 MG TABLET PO SCH (14:21)
[2017-01-30] MEDS ORDERED: ATOR40TA59 PO (15:03)
[2017-01-30] MEDS ORDERED: CLOP75TA PO (15:03)
[2017-01-30] MEDS ORDERED: METO25TA9 PO (15:03)
[2017-01-30] MEDS ORDERED: LISI2.5T PO (15:03)
[2017-01-30] MEDS ORDERED: ASPI81TA9 PO (15:03)
[2017-01-30] MEDS: ATORVASTATIN CALCIUM 40 MG TABLET. PO SCH (20:27)
[2017-01-31 05:00] VITALS: BP 130/60
[2017-01-31 07:54] VITALS: BP 124/64
[2017-01-31] MEDS ORDERED: CLOPIDOGREL BISULFATE 75 MG TABLET PO SCH (08:00)
[2017-01-31] MEDS: METOPROLOL SUCC 24HR ER 25 MG TAB.ER.24H. PO SCH (08:15)
[2017-01-31] MEDS: ASPIRIN ENTERIC COATED 81 MG TABLET.DR. PO SCH (08:15)
[2017-01-31] MEDS: LISINOPRIL 2.5 MG TABLET PO SCH (08:16)
--- NOTE | 2017-01-31 09:01 | PDOC ---
PROGRESS NOTES Chief Complaint Chief Complaint Atrial fib w/ RVR ASSESSMENT AND PLAN: 1. aFib: reverted to NSC, gardizem gtt stopped, on PO metoprolol. 2. NSTEMI: cath today with mult stents. post cath protocol. 3. HLD: on statin 4. Dispo: D/C to rehab History of Present Illness History of Present Illness no CP or SOB. Vitals Vitals Vital Signs Date Time Temp Pulse Resp B/P (MAP) Pulse Ox O2 Delivery O2 Flow Rate FiO2 01/31/17 08:16 61 124/64 01/31/17 07:54 97.9 20 97 Room Air 97.9 Physical Exam General: Alert, Cooperative, No acute distress Heart: Regular rate Lungs: Clear Abdomen: Normal bowel sounds, Soft, No tenderness Extremities: No edema Skin: No rashes Labs LABS Laboratory Tests Test 01/30/17 12:35 Sodium Level 136 mmol/L (136-145) Potassium Level 3.6 mmol/L (3.5-5.1) Chloride Level 101 mmol/L (98-107) Carbon Dioxide Level 29 mmol/L (21-32) Anion Gap 6 (6-14) Blood Urea Nitrogen 20 mg/dL (7-20) Creatinine 1.1 mg/dL (0.6-1.0) Estimated GFR (Cockcroft-Gault) 47.1 Glucose Level 99 mg/dL (70-99) Calcium Level 8.4 mg/dL (8.5-10.1) Thyroid Stimulating Hormone (TSH) 5.430 uIU/mL (0.358-3.74) DIMAS JAMISON MD January 31, 2017 09:01
[2017-01-31 10:36] VITALS: BP 106/56
--- NOTE | 2017-01-31 11:48 | DS ---
DATE OF DISCHARGE: 01/31/2017 CHIEF COMPLAINT: Shortness of breath. HOSPITAL COURSE: The patient is an 86-year-old woman coming from home with shortness of breath, increased confusion and was found in atrial fibrillation with RVR. Troponin was slightly elevated as well. She was started on Cardizem, which quickly was changed to p.o. metoprolol with good rate control. She was ruled out for an acute coronary syndrome by enzymes and EKGs. She did undergo cardiac catheterization with multiple stents placed including LAD. She tolerated the procedure without any difficulties, did get started on multiple medications for rate control as well as for secondary prevention of ACS. She was evaluated by physical therapy and was deemed appropriate for rehab placement before discharge to home. PHYSICAL EXAMINATION: Please refer to note from same day. DISCHARGE DATE: 01/31/2017. DISCHARGE DISPOSITION: To SNF. DISCHARGE CONDITION: Improved. DISCHARGE DIAGNOSES: Atrial fibrillation, coronary artery disease. DISCHARGE MEDICATIONS: Please refer to MAR. DISCHARGE INSTRUCTIONS: The patient will follow up with her primary care physician upon return to home. She will see Cardiology within 1 month. Greater than 30 minutes were spent in arranging discharge. DIMAS JAMISON MD DR: UR/nts JOB#: [id number] / [id number] Ernestina Maldonado MD MTDD
== END 2017-01-31 12:00 | DRG 246 ==
LOC: ER 20:11 → 2 SOUTH 21:30
PROVIDERS: ADMIT Internal Medicine Hematology & Oncology; ATTEND Internal Medicine Hematology & Oncology
PROC: 027237Z Dilation of Coronary Artery, Three Arteries with Four or More Drug-eluting Intraluminal Devices, Percutaneous Approach (ICD-10-PCS; principal; 2017-01-28)
PROC: 4A023N7 Measurement of Cardiac Sampling and Pressure, Left Heart, Percutaneous Approach (ICD-10-PCS; 2017-01-28)
PROC: B2111ZZ Fluoroscopy of Multiple Coronary Arteries using Low Osmolar Contrast (ICD-10-PCS; 2017-01-28)
DX: I21.4 Non-ST elevation (NSTEMI) myocardial infarction (principal); I48.0 Paroxysmal atrial fibrillation; E78.5 Hyperlipidemia, unspecified; F03.90 Unspecified dementia, unspecified severity, without behavioral disturbance, psychotic disturbance, mood disturbance, and anxiety; I10 Essential (primary) hypertension; I25.10 Atherosclerotic heart disease of native coronary artery without angina pectoris; I48.91 Unspecified atrial fibrillation; Z98.61 Coronary angioplasty status
CPT/HCPCS: 36415; 71010; 80048; 80053; 80061; 84443; 84484; 85027; 85520; 87641; 93005; 93306; 93454; 96374; C1725; C1769; C1874; C1887; C1892; J0583; J2250; J3010; J3490; Q9967; 99285-25

== ENCOUNTER 2018-02-16 22:11 | Emergency (ER) | payer MEDICARE ==
[2018-02-16] MEDS: HYDROcodone/APAP 5/325MG 1 TAB TABLET PO (23:50)
== END 2018-02-17 02:18 | disposition home or self-care (01) ==
LOC: ER 02-17 02:18
DX: S40.012A Contusion of left shoulder, initial encounter (principal); I10 Essential (primary) hypertension; E78.00 Pure hypercholesterolemia, unspecified; I25.2 Old myocardial infarction; W07.XXXA Fall from chair, initial encounter; Y93.89 Activity, other specified; Y99.8 Other external cause status; Y92.89 Other specified places as the place of occurrence of the external cause
CPT/HCPCS: 71250; 73030; 73060; 73080; 73110; 73200; 99284-25